=== PATIENT | female | born 1950 | race Caucasian/White ===

== ENCOUNTER → 2016-11-25 | Day surgery (SDC) | payer MEDICARE ==
--- NOTE | 2016-11-24 13:25 | PCM.HPANE ---
Patient Data Surgeon Admitting Provider: Attending Provider:Rick Lomeli MD Primary Care Physician:Olivia Cruz Other Provider:Pa Kuo Anesthesia Reason for Visit Colon Ca Screen/Difficulty Swallowing Ht/WT & BMI Body Mass Index Allergies Coded Allergies: gabapentin (Verified Allergy, Severe, MEMORY LOSS, 12/27/12) meperidine (Verified Allergy, Severe, 12/27/12) meprobamate (Verified Allergy, Severe, 12/27/12) metronidazole (Verified Allergy, Severe, N&V, 12/27/12) morphine (Verified Allergy, Severe, rash, chills, 11/25/14) paroxetine (Verified Allergy, Mild, WEIGHT GAIN, 12/06/13) adhesive tape (Verified Allergy, Unknown, rash, 12/04/13) hydrocodone (Verified Adverse Reaction, Mild, NAUSEA, 12/06/13) Past Anesthesia History Anesthesia History: Positive for:: Anesthesia Reactions ("with Dr. Abreu in [place] in 1988" PATIENT STATES TEMPERATURE FELL TO 90 DEGREES AND SHE NEEDED EMERGENCY JIMENE[facility] HUGGER), Denies:: Abnormal Airway, Difficult Intubation, Fam Anesthesia Reaction, Fam Malignant Hypertherm, Malignant Hyperthermia Diabetes History Hx Diabetes?: Yes (borderline) MRSA MRSA: Yes Medications Reported Medications Triamterene/HCTZ 37.5-25 mg 1 Each Capsule1 Capsule PO DAILY Ref 0 11/24/16 Albuterol HFA (Proair HFA)8.5 Gm Hfa.aer.ad2 Puffs INHALATION Q4H #1 INHALER 11/24/16 Omeprazole Magnesium (Prilosec Otc)20 Mg Tablet.dr20 Mg PO DAILY #1 PKG Ref 0 11/24/16 Potassium Gluconate 500 Gm Eujyjy822 Gm MC BID 11/24/16 oxyCODONE 5 Mg Tablet5 Mg PO Q4H PRN For Pain Ref 0 11/24/16 Nitroglycerin SL (Nitrostat)0.4 Mg Tab.subl0.4 Mg SL Q5MIN PRN For Chest Pain # 1 BOTTLE 11/24/16 Meloxicam 7.5 Mg Tablet7.5 Mg PO DAILY 30 Days Ref 0 11/24/16 Citalopram 20 Mg Riitnx39 Mg PO DAILY Ref 0 11/24/16 Discontinued Reported Medications Meloxicam 15 Mg Hjxpdr27 Mg PO DAILY 30 Days Ref 0 11/26/14 Cinnamon Bark/Chromium Picolin (Cinnamon Plus Chromium Capsule)1 Each Capsule1 Each PO DAILY 11/26/14 Amitriptyline 50 Mg Tab50 Mg PO HS Ref 0 11/26/14 Furosemide 20 Mg Tab20 Mg PO DAILY 30 Days Ref 0 11/26/14 Ranitidine HCl (Ranitidine)150 Mg Ctqcjs965 Mg PO BID 30 Days Ref 0 11/26/14 Triamterene/HCTZ 37.5-25 mg 1 Each Capsule1 Each PO DAILY 30 Days Ref 0 12/04/13 Triamcinolone Acetonide 60 Ml Lotion1 Applic TOP BID #60 ML Ref 0 12/04/13 oxyCODONE 5 Mg Tablet5 Mg PO Q4H PRN For Pain Ref 0 12/04/13 Nitroglycerin SL (Nitrostat)0.4 Mg Tab.subl0.4 Mg SL Q5MIN PRN For Chest Pain # 1 BOTTLE 12/04/13 Fluticasone Propionate (Fluticasone Propionate Nasal)16 Gm Magnet.suspUnknown Dose NS BID #16 GM Ref 0 12/04/13 Albuterol HFA 8.5 Gm Hfa.aer.ad1 Puff IH Q4 PRN For Shortness of Breath #1 INHALER Ref 0 12/04/13 Discontinued Scripts oxyCODONE 5 Mg Tablet5 Mg PO QID PRN For Pain #20 TABLET Ref 0 Prov:Harish Lopez MD 05/15/16 Amoxicillin 500 Mg Yyhuvxn124 Mg PO TID 5 Days Ref 0 Prov:Deborah Angel MD 11/27/14 History History of ENT Problems?: Yes HEENT History: Positive for:: Cataracts (repaired) Sinus Problem Denies:: Abnormal Airway Difficult Intubation Dysphagia Glaucoma Hearing Problem TMJ Denture Type: None Teeth Condition: Within Normal Limits Hx of Heart Problems?: Yes Cardiovascular History: Positive for:: Edema (takes "water pill") Heart Murmur Hypertension Irregular Heartbeat Denies:: AICD Abdominal Aortic Aneurism Atrial Fibrillation Cardiac Surgery Chest Pain Congestive Heart Failure Pacemaker Rheumatic Fever Thrombophlebitis Valvular Heart Disease Hx of Respiratory Problem?: Yes Respiratory History: Positive for:: Asthma (using inhalers, states she never was told she had asthma) Dyspnea Pneumonia (approx. 20 years ago) Use of Inhalers / NEBS Denies:: COPD Chest Surgery Cough Emphysema Hemoptysis Oxygen Administration Pulmonary Embolism Tuberculosis (pt. states test positive but chest x-ray clears her) Use of C-PAP Machine Hx Neurologic Problems?: Yes Neurological History: Positive for:: Dizziness Headaches Denies:: Alzheimer's Disease CVA Dementia Multiple Sclerosis Parkinson's Disease Peripheral Neuropathy Seizures TIA Hx of GI Problems?: Yes Hx of Problems?: Yes Genitourinary History: Positive for:: Kidney Stones (S/P RT ESWL) Urinary Tract Infection Denies:: HX of Hemodialysis (HX RENAL INSUFF.) HX of Peritoneal Dialysis: No Female Hx: Denies:: Currently Endometriosis Pelvic Inflammatory Problems with Breasts? Skin History: Denies:: History Skin Disorders? Pressure Ulcers Hx Musculoskeletal Problems?: Yes Musculoskeletal History: Positive for:: Back Injury (CHRONIC BACK PAIN ) Degenerative Joint Joint Replacement (bilat knee) Musculoskeletal Trauma (S/P CTR,KNEE,FOOT SURGERY HX FX TOE) Denies:: Systemic Lupus Hx of Psycho/Social Problems?: Yes Psycho Social History: Positive for:: Hx Depression Denies:: Anxiety Bipolar Disorder Suicide Attempt Hx Surgeries?: Yes ("I've had over 50 surgeries") Hx Any Other Health Problems?: Yes Other History: Positive for:: Hospitalization (toe wound, mult surg) Denies:: Cancer Endocrine Disease Thyroid Disease History Blood Transfusions: Positive for:: Blood Transfusions Denies:: Blood Transfuse Reaction Hx Diabetes: Yes (borderline) Hx Alcohol Use: NoHx Substance Use: No Smoking Status: Never Smoker Have You Smoked inLast 12 mo: No Stop/Bang Risk Assessment Category Category 1A: Patient has history of documented sleep apnea, and HAS NOT received any narcotic, sedative or anesthesia administration during this stay. Category 1B: Patient has history of documented sleep apnea, and HAS received any narcotic , sedative or anesthesia administration during this stay Category 2: Patient has SUSPECTED Obstructive Sleep Apnea, and HAS received any narcotic , sedative or anesthesia administration during this stay. Category 3: Patient has SUSPECTED Obstructive Sleep Apnea and HAS NOT received narcotic, sedative or anesthesia administration during this stay. Category 4: Outpatient in Procedural Areas with known sleep apnea or who screen positive for High Risk via the STOP/BANG questionnaire. Exam Exam General Appearance: Alert, Oriented X3, Cooperative, Moderate Distress HEENT/AIRWAY: MP 1 Lungs: Clear to Auscultation Heart: Exam Unremarkable Plan Impression Patient chart reviewed, patient interviewed and anesthestic plan with risks, benefits, and alternatives discussed, and informed consent obtained. ASA Physical Status: ASA2 Mod Systemic Disease Anesthetic Plan: GA Bene/Risks/Altern/Consents: Yes HP Complete Prior to Induction: Yes Jah Watt MD Nov 24, 2016 13:25
[~2016-11-25] VITALS: Ht 167.6 cm; Wt 100.0 kg
[~2016-11-25] MED LIST: ALBU8.5H2 INHALATION; CITA20TA11 PO; Lactated Ringer's 1,000 ML IV ONE; Lactated Ringer's 1,000 ML IV SCH; MELO-259 PO; NITR0.4T SL; OMEP20TA24 PO; OXYC5TAB72 PO; Ondansetron 2 mg/mL 2 mL Inj IVPUSH PRN; POTA500P42 MC; Propofol 10,000 mCg/mL 20 mL Inj ONE; TRIA1CAP5 PO; fentaNYL-PF 50 mCg/mL 2 mL Inj ONE
[2016-11-25 15:23] VITALS: BP 135/69; PULSE 73; RESP 17; O2SAT 97
--- NOTE | 2016-11-25 16:25 | PCM.ENDEGD ---
EGD Date of Service: Nov 25, 2016 Physician Rick Lomeli MD Pre Procedure Diagnosis: Globus sensation Post Procedure Dx & Findings: Fundic polyps Procedure Esophagogastroduodenoscopy PROCEDURE IN DETAIL: After proper sedation, Olympus video endoscope was inserted into patient's mouth and esophagus was successfully intubated. Scope introduced esophagus. Esophagus showed normal shiny whitish mucosa consistent with squamous cell component. Z line was intact at 35 cm from the incisors. Scope further advanced to the stomach. Stomach showed normal shiny mucosa with normal appearing rugae folds without any ulcer mass erosion. Cardia fundus body antrum pylorus were all visualized. Retroflexion was done. In the fundus and proximal body, there were several 3 mm less fundic polyps. Sampling biopsies obtained. Stomach was easily inflated and deflatable using air. Scope further advanced to the distal duodenum. Duodenum revealed normal villous structures with normal appearing folds without any mass ulcer or erosion. Impression Fundic polyps Presedation Assessment Risks and Benefits Informed consent was obtained from the patient after all risks and benefits including but not limited to drug reaction, infection, pain, bleeding, perforation, as well as alternatives were discussed. Patient monitoring Continuous pulse oximetry, cardiac monitoring, blood pressure monitoring, IV access, and oxygen at 2L per nasal cannula. Complications There were no periprocedural complications identified. Post Procedure Plan Post Procedure Recommendations 1. Restrict activities today. 2. Resume normal activities in the morning. 3. Resume medications. 4. GERD behavioral modification: - Avoid fatty, acidic, spicy, large meals - Do not lie down after meals - Do not eat or drink anything for at least 2 1/2 hours before going to bed at night - Discontinue tobacco and alcohol - Decrease or avoid caffeine - Avoid chocolate and mints - Decrease weight - Avoid aspirin and non steroidal anti-inflammatory agents (NSAID) such as Aleve, Advil, Mobic, Naproxen, Ibuprofen, etc 5. Add proton pump inhibitor. Take 30 minutes before 1st meal of the day. 6. Patient informed of normal post procedure side effects as bloating, drowsiness, blood streaking in the stool 7. If gastric biopsy reveal H.pylori, continue with appropriate treatment 8. If small bowel biopsy reveals celiac, continue with appropriate treatment 9. Please don't hesitate to call me with any questions Rick Lomeli MD Nov 25, 2016 16:25
[2016-11-25 16:28] VITALS: BP 121/67; PULSE 82; RESP 16; O2SAT 97
--- NOTE | 2016-11-25 16:28 | PCM.ANEP1 ---
Post Anesthesia PACU Phase 1 Assessment Vital Signs Vital Signs Date Time Temp Pulse Resp B/P Pulse Ox O2 Delivery O2 Flow Rate FiO2 11/25/16 15:23 36 73 17 135/69 97 Room Air Anesthetic Administered: GA Level of Alertness: Awake, talking SAINI's with Equal Strength: Yes Pain: No Nausea or Vomiting: No CV Function & Hydration Stable: Yes Airway Device: Oxygen Delivery: Room Air Lungs: Normal Air Movement PACU Phase 2 Assessment Complications: No Follow up Care: No Patient Instructions Provided: N/A Jah Watt MD Nov 25, 2016 16:28
--- NOTE | 2016-11-25 16:29 | PCM.ENDCOL ---
Colonoscopy Date of Service: Nov 25, 2016 Physician Rick Lomeli MD Pre Procedure Diagnosis: Change in bowel patterns Post Procedure Dx & Findings: Polyp hemorrhoids diverticula Procedure Colonoscopy PROCEDURE IN DETAIL: Prep adequate Withdrawal time 11 minutes After unremarkable rectal examination the Olympus video colonoscope was inserted patient's anal canal and was advanced to cecum. Landmarks were identified including the ileocecal valve and appendiceal orifice. Scope was withdrawn systematically. Visualized colonic mucosa showed healthy shiny mucosa with normal healthy-appearing vasculature. In the cecum, there was a 2 mm polyp which was removed completely using cold snare. In the ascending colon there was 1 mm polyp which was removed completely using cold forceps. In the descending colon there was a 3 mm polyp which was removed completely using cold snare. There was 2 AVMs in the cecum. One was 1 cm the other one was 3 mm. From the sigmoid colon and isolated into the ascending colon, there a few small diverticuli. In the rectum retroflexion was done which showed hemorrhoids. Anal canal was inspected carefully on the way out and hemorrhoids noted. Impression Polyps 3 status post complete removal Diverticulosis AVMs Hemorrhoids Recommendation Repeat colonoscopy 3 years Diverticuliar diet Presedation Assessment Risks and Benefits Informed consent was obtained from the patient after all risks and benefits including but not limited to drug reaction, infection, pain, bleeding, perforation, as well as alternatives were discussed. Patient monitoring Continuous pulse oximetry, cardiac monitoring, blood pressure monitoring, IV access, and oxygen at 2L per nasal cannula. Complications There were no periprocedural complications identified. Post Procedure Plan Post Procedure Recommendations 1. Restrict activities today. 2. Resume normal activities in the morning. 3. Resume medications. 4. Patient informed of normal post procedure side effects as bloating, drowsiness, blood streaking in the stool. 5. average risk CRCS. If colon polyps come back as: -Hyperplastic- can repeat colonoscopy in 10 years -Tubular adenoma- repeat colonoscopy in 5 years -Tubulovillous/villous adenoma- repeat colonoscopy in 3 years -If any dysplasia- return to clinic as soon as possible 6. Please don't hesitate to call me with any questions. Rick Lomeli MD Nov 25, 2016 16:29
[2016-11-25 16:38] VITALS: BP 113/71; PULSE 71; RESP 16; O2SAT 98
[2016-11-25 16:48] VITALS: BP 130/90; PULSE 70; RESP 16; O2SAT 99
--- NOTE | 2016-12-01 09:32 | PATH ---
SURGICAL PATHOLOGY Attending Physician:Rick Lomeli M.D. CASE STATUS: Signed Out PATIENT NAME: JOSE J HERRERA PID: [id number] : 1950 DATE COLLECTED:11/25/2016 00:00 SPECIMEN: 1: Stomach, Polyp, Biopsy 2: Colon, Polyp 3: Colon, Polyp 4: Colon, Polyp CLINICAL HISTORY: 1). FUNDUS (GASTRIC) POLYP 2). CECAL POLYP 3). ASCENDING COLON POLYP 4). DESCENDING COLON POLYP FINAL DIAGNOSIS: 1.GASTRIC POLYP: FUNDIC GLAND POLYP. Negative for Helicobacter organisms on H&E stains. Negative for intestinal metaplasia. Negative for dysplasia and malignancy. 2.CECAL POLYP: TUBULAR ADENOMA. 3.ASCENDING COLON POLYP: TUBULAR ADENOMA. 4.DESCENDING COLON POLYP: TUBULAR ADENOMA. ICD10 K31.7 D12.0 D12.2 D12.4 GROSS DESCRIPTION: Received are four formalin-filled containers, each labeled with the patient' s name. 1. Received in formalin, labeled with the patient' s name and "fundus polyp", are two fragments of bynum, soft tissue ranging in size from 0.1 x 0.1 x 0.1 cm to 0.2 x 0.1 x 0.1 cm. All fragments are totally submitted in cassette 1A. 2. Received in formalin, labeled with the patient' s name and "cecal polyp", is one fragment of bynum, soft tissue measuring 0.1 x 0.1 x 0.1 cm. The fragment is totally submitted in cassette 2A. 3. Received in formalin, labeled with the patient' s name and "ascending colon polyp", is one fragment of bynum, soft tissue measuring 0.1 x 0.1 x 0.1 cm. The fragment is totally submitted in cassette 3A. 4. Received in formalin, labeled with the patient' s name and "descending colon polyp", is one fragment of bynum, soft tissue measuring 0.3 x 0.2 x 0.1 cm. The fragment is totally submitted in cassette 4A. ([id number]) MICRO DESCRIPTION: See diagnosis. ICD-9 CODES: CPT CODES: 1: 66994 2: 25915 3: 36019 4: 72643 Electronically Signed Out Loulou Arrington MD [facility] [address], [place] [address] Technical component performed at [facility], [facility] [address], [place], [address]
== END | disposition home or self-care (01) ==
LOC: END 00:37
PROVIDERS: ATTEND Internal Medicine
DX: Z12.11 Encounter for screening for malignant neoplasm of colon (principal); D12.0 Benign neoplasm of cecum; D12.2 Benign neoplasm of ascending colon; D12.4 Benign neoplasm of descending colon; K57.30 Diverticulosis of large intestine without perforation or abscess without bleeding; K64.9 Unspecified hemorrhoids; Q27.33 Arteriovenous malformation of digestive system vessel; K31.7 Polyp of stomach and duodenum; R13.10 Dysphagia, unspecified; R19.4 Change in bowel habit; I10 Essential (primary) hypertension; G89.4 Chronic pain syndrome; M35.3 Polymyalgia rheumatica; J45.909 Unspecified asthma, uncomplicated; F41.8 Other specified anxiety disorders; Z79.891 Long term (current) use of opiate analgesic; Z86.14 Personal history of Methicillin resistant Staphylococcus aureus infection; Z96.653 Presence of artificial knee joint, bilateral; Z87.442 Personal history of urinary calculi
CPT/HCPCS: 43239; 45380; 45385; J3010; J7120